=== PATIENT | male | born 1995 | race Hispanic/Latino ===

== ENCOUNTER 2025-03-30 17:59 | Emergency (ER) | payer OTHER ==
[~2025-03-30] VITALS: Ht 157.5 cm; Wt 86.4 kg
[2025-03-30 18:08] VITALS: PULSE 104; RESP 16; TEMP 98.9; O2SAT 99
[2025-03-30] MEDS ORDERED: KETOROLAC TROME10 MG PO (20:04)
[2025-03-30] MEDS ORDERED: CYCLOBENZAPRINE5 MG PO (20:04)
== END 2025-03-30 20:18 | disposition home or self-care (01) ==
LOC: FSED 18:10
DX: S00.83XA Contusion of other part of head, initial encounter (principal); R07.89 Other chest pain; V47.5XXA Car driver injured in collision with fixed or stationary object in traffic accident, initial encounter; Y92.488 Other paved roadways as the place of occurrence of the external cause; F17.210 Nicotine dependence, cigarettes, uncomplicated
CPT/HCPCS: 70450; 71046; 74176; 99284